=== PATIENT | female | born 1975 | race Caucasian/White ===

== ENCOUNTER 2017-01-28 09:03 | Emergency (ER) | payer SELFPAY ==
[~2017-01-28] VITALS: Ht 167.6 cm; Wt 72.0 kg
[2017-01-28 09:05] VITALS: BP 117/62
== END 2017-01-28 10:10 | disposition left against medical advice (07) ==
LOC: ER 09:18
DX: M25.511 Pain in right shoulder (principal); Z53.21 Procedure and treatment not carried out due to patient leaving prior to being seen by health care provider